=== PATIENT | female | born 1995 ===

== ENCOUNTER 2022-06-25 22:36 | Emergency (ER) | payer OTHER ==
[2022-06-25] MEDS ORDERED: Ondansetron 4 MG/2 ML SDV IVPUSH ONE (23:19)
[2022-06-25] MEDS ORDERED: HYDROmorphone 1 MG/ML Syringe IVPUSH STA (23:19)
[2022-06-25] MEDS ORDERED: Sodium Chloride 0.9% 1,000 ML IV SCH (23:30)
[2022-06-25] MEDS ORDERED: Iopamidol 612 MG/ML 100 ML Bottle IVPUSH ONE (23:57)
[2022-06-26] MEDS ORDERED: Orphenadrine 100 MG Tab.ER PO STA (00:39)
[2022-06-26] MEDS ORDERED: Ibuprofen 600 MG Tab PO ONE (00:39)
== END 2022-06-26 01:15 | disposition home or self-care (01) ==
LOC: JD.ED 22:36
DX: R10.30 Lower abdominal pain, unspecified (principal); M54.50 Low back pain, unspecified; I10 Essential (primary) hypertension; E66.9 Obesity, unspecified; Z68.43 Body mass index [BMI] 50.0-59.9, adult
CPT/HCPCS: 36415; 74177; 80053; 81003; 81025; 83690; 85007; 85027; 99284; A9270; J7030; Q9967